=== PATIENT | female | born 1940 | race Asian ===

== ENCOUNTER → 2018-11-24 | Outpatient (CLI) | payer MEDICARE, OTHER ==
[~2018-11-24] MED LIST: GLIP10TA9 PO; METF-960 PO; OMEG1CAP6 PO; SITA100 PO; TELM20 PO; VERA240T14 PO
== END | disposition home or self-care (01) ==
LOC: RADPV 08:36
PROVIDERS: ATTEND Internal Medicine
DX: R10.9 Unspecified abdominal pain (principal)
CPT/HCPCS: 76700

== ENCOUNTER 2021-11-14 10:10 | Emergency (ER) | payer MEDICARE, OTHER ==
[~2021-11-14] VITALS: Ht 157.5 cm; Wt 63.6 kg
[~2021-11-14 10:10] MED LIST changes: +METF-1211 PO; -METF-960 PO; -VERA240T14 PO; +VERA240T95 PO
[2021-11-14 10:31] LABS: GLUCOSE,POINT OF CARE 278 MG/DL (70-110)
[2021-11-14] MEDS ORDERED: ACETAMINOPHEN 325 MG TABLET PO ONE (10:45)
[2021-11-14 13:17] VITALS: BP 149/75
[2021-11-14] MEDS ORDERED: PERTUSS(ACELL),DIPH,TET VAC/PF 0.5 ML SYRINGE IM. ONE (14:15)
== END 2021-11-14 15:25 | disposition home or self-care (01) ==
LOC: EMS 10:17
DX: S09.90XA Unspecified injury of head, initial encounter (principal); Z79.84 Long term (current) use of oral hypoglycemic drugs; Z79.899 Other long term (current) drug therapy; V49.49XA Driver injured in collision with other motor vehicles in traffic accident, initial encounter; Y93.89 Activity, other specified; Y92.89 Other specified places as the place of occurrence of the external cause; Y99.8 Other external cause status
CPT/HCPCS: 70450; 71046; 72125; 82962; 90471; 90715; 99284

== ENCOUNTER → 2022-12-23 | Outpatient (CLI) | payer MEDICARE, OTHER ==
[2022-12-23 16:07] LABS: CALCIUM, TOTAL 9.2 mg/dL (8.8-10.5); CREATININE 1.86 mg/dL (0.60-1.30); PHOSPHORUS 4.2 mg/dL (2.5-4.9); POTASSIUM 4.3 mmol/L (3.5-5.1)
[2022-12-24 06:06] LABS: PARATHYROID HORMONE INTACT 41 pg/mL (15-65)
== END | disposition home or self-care (01) ==
LOC: LABMN 15:22
PROVIDERS: ATTEND Internal Medicine Nephrology
DX: E11.22 Type 2 diabetes mellitus with diabetic chronic kidney disease (principal); N18.30 Chronic kidney disease, stage 3 unspecified
CPT/HCPCS: 80048; 83036; 83970; 84100